=== PATIENT | male | born 1960 | race Caucasian/White ===

== ENCOUNTER 2017-05-02 18:58 | Inpatient (IN) | payer SELFPAY ==
[~2017-05-02] VITALS: Ht 177.8 cm; Wt 79.4 kg
[2017-05-02 19:25] LABS: BASOPHIL % 0.6 % (0.0-0.2); EOSINOPHIL # 0.2 10^3/uL (0.0-0.2); EOSINOPHIL % 3.7 % (0.0-5.0); HEMOGLOBIN 14.2 g/dL (13.9-16.3); LYMPHOCYTES # 1.1 10^3/uL (1.0-4.8); LYMPHOCYTES % 20.7 % (24.0-44.0); MEAN CELL HGB 30.5 pg (26-34); MEAN CORP VOLUME 89.9 fL (78-100); MEAN PLATELET VOLUME 8.8 fL (7.8-11.0); MONOCYTES # 0.4 10^3/uL (0.3-0.8); MONOCYTES % 8.1 % (5.0-12.0); NEUTROPHIL # 3.6 10^3/uL (1.8-7.7); NEUTROPHILS % 66.9 % (41.0-85.0); RED CELL DISTRIBUTION WIDTH 12.8 % (11.5-14.5); WHITE BLOOD CELL 5.4 10^3/uL (4.5-11.0)
--- NOTE | 2017-05-02 19:25 | PCM.EKG ---
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 Reading MD: Ben SALAS Measurements Intervals [place] Rate: 82 P: 56 RI: 150 QRS: 81 QRSD: 80 T: 84 QT: 372 QTc: 434 Interpretive Statements Poor data quality, interpretation may be adversely affected Normal sinus rhythm Normal ECG No previous ECG available for comparison Electronically Signed On 05-07-2017 18:56:24 FIELD SPEC by Ben SALAS Please click the below link to view image of tracing.
--- NOTE | 2017-05-02 19:30 | NUR ---
DENIES PATIENT DENIES BEING SUICIDAL/HOMICIDAL
--- NOTE | 2017-05-02 19:50 | NUR ---
URINE COLLECTED AND TAKEN TO LAB
[2017-05-02 19:52] LABS: BILIRUBIN,URINE NEGATIVE (NEGATIVE)
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
[2017-05-02 19:58] LABS: APPEARANCE,URINE CLEAR (CLEAR); UA COLOR YELLOW (YELLOW)
--- NOTE | 2017-05-02 20:02 | DIREP ---
PROCEDURE:CHEST 1 VIEW COMPARISON:[facility], CR, XRAY CHEST SINGLE VW, 01/07/2017, 05:04 PM. [facility], CR, XRAY CHEST SINGLE VW, 11/11/2016, 03:48 PM. INDICATIONS:MED CLEARANCE FINDINGS: LUNGS/PLEURA:No significant pulmonary parenchymal abnormalities. No effusions. VASCULATURE:Normal. Unremarkable pulmonary vasculature. CARDIAC:Normal. No cardiac silhouette abnormality or cardiomegaly. MEDIASTINUM:Normal. No visible mass or adenopathy. BONES:Old left rib fractures. OTHER:Negative. CONCLUSION:No acute cardiopulmonary abnormalities. Dictated by: Roman Quintero M.D. on 05/02/2017 at 08:00 PM
[2017-05-02 20:07] LABS: UR BENZODIAZEPINE QUAL NEGATIVE (NEGATIVE); UR COCAINE QUAL NEGATIVE (NEGATIVE)
--- NOTE | 2017-05-02 20:10 | NUR ---
TO CT PATIENT TO CT VIA WHEELCHAIR WITH THIS NURSE AND STEFANY LUNDY AND
--- NOTE | 2017-05-02 20:15 | NUR ---
BACK FROM CT PATIENT BACK FROM CT, PATIENT COOPERATING AT THIS TIME. PATIENT ATE HAMBURGER AND FRIES AND DRANK SEVERAL GLASSES OF WATER PRIOR TO GOING TO CT AND SEEMS TO BE MORE COOPERATIVE. NO NEEDS VOICED BY PATIENT, VITALS STABLE
[2017-05-02 20:19] LABS: ALANINE AMINOTRANSFERASE 26 U/L (12-78); ALKALINE PHOSPHATASE 70 U/L (50-136); ASPARTATE AMINO TRANSFERASE 17 U/L (0-35); CALCIUM 8.6 mg/dL (8.4-10.5); CARBON DIOXIDE 30.2 mmol/L (20.0-32); CHOLESTEROL 147 mg/dL (120-240); GLUCOSE 87 mg/dL (70-110); HDL CHOLESTEROL 61 mg/dL (32-96)
--- NOTE | 2017-05-02 20:31 | DIREP ---
PROCEDURE:CT HEAD OR BRAIN W/O CONTRAST COMPARISON:[facility], CT, CT HEAD BRAIN W/O CONTRAST, 01/08/2017, 11:29 PM. INDICATIONS:MED CLEARANCE, AMS TECHNIQUE:CT images were created without intravenous contrast. Motion artifacts are present on multiple images. FINDINGS: VENTRICLES:The ventricles are normal in size and configuration. CEREBRUM:Normal cerebral morphology with appropriate turner white matter differentiation. CEREBELLUM:Negative. BRAINSTEM:Negative. BASAL CISTERNS:Negative. HEMORRHAGE:No obvious acute hemorrhage. MASS LESION:No obvious mass. ACUTE INFARCT:No obvious acute infarct. SKULL:Normal. SINUSES:Normal. OTHER:None CONCLUSION:Motion degraded examination. No obvious acute abnormalities. Dictated by: Roman Quintero M.D. on 05/02/2017 at 08:29 PM
--- NOTE | 2017-05-02 20:37 | ER.PDOC ---
General Chief Complaint: Medical Clearance Stated Complaint: ALTERED MENTAL STATUS Time seen by MD: 19:38 Source: patient Exam Limitations: clinical condition History of Present Illness Initial Comments altered mental status to ed via ems found wandering Timing/Duration: other (unknown duration + psyche hx for hallucination TBI ) Character of AMS: disoriented Context: unknown duration Usually: orientedx3 Prior symptoms/Treatment: Similar symptoms previous, Treated by Doctor Allergies: Coded Allergies: codeine (Verified Allergy, Unknown, RASH, 11/11/16) Home Meds Unable to Obtain Active Prescriptions or Reported Meds Family History Significant Family History: no pertinent family hx Social History Smoking: cigarettes, greater than 1 pack/day Alcohol Use: rarely Drug Use: Meth Review of Systems All Other Systems: Reviewed and Negative Physical Exam General Appearance: other (disoriented + hallucinations speaking to self) HEENT: EOM's intact, airway intact, oral exam nml Neuro/Psych: disoriented to person, disoriented to place, disoriented to time, abnml speech, abnml cognition Cranial Nerves: nml as tested Cerebellar: nml as tested Respiratory: no resp distress, breath sounds nml CVS: reg rate & rhythm, heart sounds nml Abdomen: non-tender, no organomegaly, no distention Skin: color nml, no rash, warm/dry Extremities: non-tender, nml ROM, no pedal edema Results/Orders Results/Orders Laboratory Tests Test 05/02/17 00:00 05/02/17 19:21 Urine Collection Type VOID Urine Color YELLOW (YELLOW) Urine Appearance CLEAR (CLEAR) Urine Bilirubin NEGATIVE MG/DL (NEGATIVE) Urine Ketones NEGATIVE (NEGATIVE) Urine Specific [employer] 1.020 (1.005-1.035) Urine pH 6 (5.0-6.0) Urine Protein NEGATIVE (NEGATIVE) Urine Urobilinogen 1.0 (NEGATIVE) Urine Nitrate NEGATIVE (NEGATAIVE) Urine Leukocyte Esterase NEGATIVE (NEGATIVE) Urine Blood NEGATIVE (NEGATIVE) Urine Glucose NORMAL (NEGATIVE) Opiates Screen NEGATIVE (NEGATIVE) Barbiturate Screen NEGATIVE (NEGATIVE) Urine Tricyclic Antidepressants NEGATIVE (NEGATIVE) Phencyclidine (PCP) Screen NEGATIVE (NEGATIVE) Amphetamines Screen POSITIVE (NEGATIVE) Benzodiazepines Screen NEGATIVE (NEGATIVE) Cocaine Screen NEGATIVE (NEGATIVE) Ur Tetrahydrocannabinol (THC) Scrn NEGATIVE (NEGATIVE) White Blood Count 5.4 10^3/uL (4.5-11.0) Red Blood Count 4.65 10^6/uL (4.50-5.90) Hemoglobin 14.2 g/dL (13.9-16.3) Hematocrit 41.8 % (37.0-53.0) Mean Corpuscular Volume 89.9 fL (78-100) Mean Corpuscular Hemoglobin 30.5 pg (26-34) Mean Corpuscular Hemoglobin Concent 34.0 g/dL (33-37) Red Cell Distribution Width 12.8 % (11.5-14.5) Platelet Count 257 10^3/uL (150-400) Mean Platelet Volume 8.8 fL (7.8-11.0) Neutrophils (%) (Auto) 66.9 % (41.0-85.0) Lymphocytes (%) (Auto) 20.7 % (24.0-44.0) Monocytes (%) (Auto) 8.1 % (5.0-12.0) Neutrophils # (Auto) 3.6 10^3/uL (1.8-7.7) Lymphocytes # (Auto) 1.1 10^3/uL (1.0-4.8) Monocytes # (Auto) 0.4 10^3/uL (0.3-0.8) Absolute Immature Granulocyte (auto 0 10^3 u/L (0-2) Eosinophils % 3.7 % (0.0-5.0) Basophils % 0.6 % (0.0-0.2) Basophils # 0.0 10^3/uL (0.0-0.1) Eosinophil Count 0.2 10^3/uL (0.0-0.2) Prothrombin Time 11.4 SEC (9.8-11.9) Prothrombin Time INR (Non-Therap) 1.1 Activated Partial Thromboplast Time 29.0 SEC (24.67-30.72) Sodium Level 145 mmol/L (132-145) Potassium Level 3.7 mmol/L (3.6-5.2) Chloride Level 106.0 mmol/L (96-109) Carbon Dioxide Level 30.2 mmol/L (20.0-32) Anion Gap 12.5 Blood Urea Nitrogen 19 mg/dL (7-18) Creatinine 0.90 mg/dL (0.59-1.40) Estimated GFR () 104.9 (>/=60) BUN/Creatinine Ratio 21.0 Glucose Level 87 mg/dL (70-110) Hemoglobin A1c 5.4 % (4.2-6.2) Calcium Level 8.6 mg/dL (8.4-10.5) Total Bilirubin 0.3 mg/dL (0.2-1.0) Aspartate Amino Transf (AST/SGOT) 17 U/L (0-35) Alanine Aminotransferase (ALT/SGPT) 26 U/L (12-78) Alkaline Phosphatase 70 U/L (50-136) Total Creatine Kinase 164 U/L (39-308) Creatine Kinase MB 3.5 ng/mL (0.5-3.6) Troponin I < 0.02 ng/mL (0.00-0.05) C-Reactive Protein 0.13 mg/dL (0.00-5.00) Pro-B-Type Natriuretic Peptide 103 pg/mL (0-125) Total Protein 6.4 g/dL (6.4-8.2) Albumin 3.6 g/dL (3.4-5.0) Globulin 2.8 Triglycerides Level 75 mg/dL (20-200) Cholesterol Level 147 mg/dL (120-240) LDL Cholesterol, Calculated 71.0 VLDL Cholesterol 15.0 HDL Cholesterol 61 mg/dL (32-96) Cholesterol Ratio (LDL/HDL) 1.1 Cholesterol/HDL Ratio [id number] Vitamin B12 Level 374 pg/mL (193-986) Thyroid Stimulating Hormone (TSH) 1.496 mIU/mL (0.358-3.740) Valproic Acid (Depakene) Level < 3 ug/mL (50-100) [place] Level < 0.20 mmol/L (0.6-1.2) Percent Immature Gran (Cell Imm) 0.00 % (0.00-0.50) Administered Medications Medications (Trade) Dose Ordered Sig/Salvador Route PRN Reason Start Time Stop Time Status Last Admin Dose Admin Haloperidol Lactate (Haldol) 10 mg STAT STAT IM 05/02/17 21:15 05/02/17 21:16 DC 05/02/17 21:20 Progress Progress + medically cleared + amphetamine in UDS comit papers kimmie accepts to GP 2127 EKG/XRAY/CT/US EKG: NSR EKG Comments: no stemi XRAY: chest XRAY Comments: neg CT Comments: head neg Departure Time of Disposition: 21:59 Disposition: 09 ADMITTED INPATIENT Impression: Primary Impression: Methamphetamine abuse Additional Impression: Auditory hallucination Condition: Stable Referrals: [facility] (PCP) PRIMARY CARE PROVIDER Scripts Unable to Obtain Active Prescriptions or Reported Meds Problem Qualifiers SPENCER NÚÑEZ MD May 02, 2017 20:37
--- NOTE | 2017-05-02 21:03 | NUR ---
OZ ROMANO CALLED AND STATED SHE HAS LEFT A MESSAGE WITH THE DOCTOR BUT HASN'T HEARD BACK YET. SHE WILL CALL SOON SHE KNOWS
[2017-05-02] MEDS ORDERED: HALDOL ONE (21:15)
[2017-05-02] MEDS ORDERED: HALDOL IM STA (21:15)
--- NOTE | 2017-05-02 22:23 | NUR ---
JUDGE DUNBAR SIGNED COMMITTAL PAPERS
[2017-05-02] MEDS ORDERED: RISPERDAL PO STA (22:40)
[2017-05-02 22:50] VITALS: BP 168/87
--- NOTE | 2017-05-02 23:20 | NUR ---
arrival to unit PT. ARRIVED ON UNIT AT 2240 VIA W/C,ACCOMPANIED BY [employer] ATTENDANT AND ER NURSE. PT.'S CLOTHES AND BODY WAS VERY DIRTY . PT. WAS ORIENTED TO NAME NOT MONTH OR YEAR. PT. POSITIVE FOR METH. PT. WAS OBSERVED BY BYSTANDER AT [employer] TONIGHT WANDERING AROUND ,RAMBLING AND EXHIBITING HALLUCINATIONS AND DELUSIONAL. THE MAN CALLED POLICE AND DROVE THE PT. TO ER DEPT. ON ASSESSMENT BY THIS NURSE IN THE ER ,PT. STATED THERE WAS ROCKS FALLING FROM THE [place] ,EXHIBITED LOOSE ASSOCIATION AND FLIGHT OF IDE[place]. PT. SAID HE LIVES AT THREE DIFFERENT LOCATIONS. PT. WAS RESTLESS AND ANXIOUS AND RECEIVED HALDOL IN ER. WHEN PT. ARRIVED ON UNIT HE STATED HE WAS SLEEPY AND WAS ASSISTED WITH CHANGING CLOTHES AND TO BED. ASSESSMENT COMPLETED. NO SKIN ISSUES NOTED. Addendum: 05/03/17 at 0242 by Malika Erickson RN RN PT. STATED HE DOES NOT TAKE ANY MEDICATION.
--- NOTE | 2017-05-02 23:30 | NUR ---
DRKhurram NOTIFICATION DR. GARCIA WAS NOTIFIED AT 2200 AND VERBAL ORDER RECEIVED TO ADMIT PT. TO [facility] IF MEDICALLY CLEARED AND MEDICATION ORDERS RECEIVED. AT [address] DR. GARCIA PHONED UNIT TO CHECK ON PT. STATUS.
--- NOTE | 2017-05-02 23:40 | NUR ---
NOTIFICATION DR. LEE NOTIFICATION OF PT.'S ARRIVAL TO UNIT. NO ORDERS RECEIVED AT THIS TIME.
[2017-05-03] MEDS ORDERED: RISPERDAL PO PRN (02:00)
[2017-05-03] MEDS ORDERED: ATIVAN IM PRN (02:00)
--- NOTE | 2017-05-03 02:42 | NUR ---
STATUS PT. RESTING IN BED WITH EYES CLOSED. RESP. EVEN AND NON LABORED. HE REFUSED TO PUT ON YELLOW SOCK BUT THEY ARE AVAILABLE IN HIS ROOM. Q 15 MIN. MONITORING AND RECORDING THIS SHIFT. PT. HAS TAKEN MEDICATION ORDERED.
--- NOTE | 2017-05-03 04:53 | NUR ---
pirp p- altered thought process,substance abuse and self care deficit I- MONITOR Q 15 MIN. , GIVE CLEAR AND SIMPLE INSTRUCTIONS TO PT, PROVIDE SAFE AND SUPPORTIVE ENVIRONMENT,PROVIDE MEDICATION ORDERED, PROVIDE REALITY ORIENTATION NEEDED, OBSERVE FOR SIGNS AND SYMPTOMS OF WITHDRAWAL ,MONITOR FOOD AND FLUIDS AND ESTABLISH A ROUTINE FOR SELF GROOMING. R- PT. TOOK MEDICATION ORDERED AND DRANK 100 CC OF WATER. PUT HOSPITAL GOWN SO CLOTHES COULD BE WASHED, WAS ORIENTED TO NAME NOT YEAR OR MONTH. STATED ROCKS WERE FALLING FROM THE [place]. PT. RESTED IN BED WITH EYES CLOSED FOR 6.50 HOURS OF THIS TIME. P- WILL CONTINUE WITH CURRENT TX. PLAN.
[2017-05-03 07:45] VITALS: BP 132/77
[2017-05-03] MEDS: RISPERDAL PO SCH ×3 (08:28→20:02)
--- NOTE | 2017-05-03 12:50 | NUR ---
VSEE Pt was seen by Dr. Amato via telemed. Received orders to start daily nicotine patch, see EMAR.
--- NOTE | 2017-05-03 14:21 | HPH ---
ADMIT DATE: 05/02/2017 PSYCHIATRIC ADMISSION DIAGNOSTIC EVALUATION NOTE Time of evaluation: 12:00 to 01:00 o'clock CHIEF COMPLAINT: Psychotic symptoms. HISTORY OF PRESENT ILLNESS: This is an elderly male, admitted with active psychotic symptoms, wandering in the streets, homeless, found by the police and brought in involuntarily to the [facility], with active auditory and visual hallucinations, delusional thought and paranoia. He reports his mood as being stable, not depressed. No vegetative symptoms. No anhedonia. No suicidal or homicidal thoughts. It is clear that this individual has been using methamphetamine, he reports, since he was 28; most recently, in a methamphetamine pipe. And likely the psychotic symptoms are directly related to methamphetamine abuse. No other psychotic symptoms, and as outlined, no suicidal or homicidal ideation, intent or plan. 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 PAST MEDICAL HISTORY: None. ALLERGIES: CODEINE. CURRENT MEDICATIONS: Risperdal 2 mg t.i.d. FAMILY PSYCHIATRIC HISTORY: None reported. SOCIAL HISTORY: The patient lives in [place], [place]. 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 Positive alcohol use, positive tobacco, and methamphetamine use since 28 years of age. OBJECTIVE: VITAL SIGNS: Temperature 98.2 degrees Fahrenheit, pulse 90, respirations 16, oxygen saturation 97%, and blood pressure 132/77 mmHg. REVIEW OF SYSTEMS: HEENT: Normal. RESPIRATORY: No shortness of breath, coughing, or wheezing. CARDIAC: No chest pain or palpitations. GASTROINTESTINAL: No nausea, vomiting, diarrhea, or constipation. GENITOURINARY: No difficulty with urination. EXTREMITIES: No swelling or edema. MUSCULOSKELETAL: No muscle pain. NEUROLOGIC: Normal. ENDOCRINE: Normal. MENTAL STATUS EXAMINATION: An alert male with decreased psychomotor activity. Concentration and memory are intact. Speech and language are normal. Orientation is full. Intelligence is average. Mood is assessed as stable. Affect is appropriate. Insight and judgment are fair. Thought: Decreasing psychotic symptoms with decreasing auditory and visual hallucinations. No suicidal or homicidal ideation, intent, or plan. DIAGNOSES: AXIS I: 1. Psychotic disorder, NOS. 2. Methamphetamine use disorder. AXIS II: Deferred. AXIS III: Refer to past medical history. TREATMENT PLAN: 1. This patient was admitted involuntarily to the [facility], representing a risk and danger to himself. 2. He has been placed on medications, specifically Risperdal 2 mg t.i.d. 3. He is to participate in groups, therapies, and activities. 4. The patient will be discharged to an outpatient setting when he no longer represents any risk or danger to himself. Aleksander Amato MD DR: LUCI/norma JOB# [id number]
[2017-05-03] MEDS ORDERED: NICOTINE 21MG PATCH TD STA (14:31)
--- NOTE | 2017-05-03 16:36 | NUR ---
MMSE: NO IMPAIRMENT Addendum: 05/03/17 at 1636 by Janina Ascencio, JOSE, BOOKSEAMER BLINDSTITCH SW Amended: Links added.
--- NOTE | 2017-05-03 16:43 | NUR ---
GMAS: NO DEPRESSION Addendum: 05/03/17 at 1643 by Janina Ascencio, JOSE, RECRUITING INTERN SW Amended: Links added.
--- NOTE | 2017-05-03 17:03 | NUR ---
SYMPTOMATOLOGY EVAL: PT PRESENTED TO THE ER WITH [place] [employer] DUE TO ROAMING AROUND ON THE [place] [employer] HALLUCINATING THAT ROCKS WERE FALLING FROM THE [place] AND TALKING TO PEOPLE THAT WERE NOT THERE AND TAKING HIS CLOTHES OFF AT THE ADMISSION DESK. RECOMMENDED INPATIENT TREATMENT ON THE [facility] ON AN INVOLUNTARY STATUS AT THIS TIME. Addendum: 05/03/17 at 1707 by Janina Ascencio LMSW, CR [facility] Amended: Links added.
--- NOTE | 2017-05-03 17:33 | NUR ---
PIRP P: Hallucinating, withdrawn, depression, anxiety, loose associations I: Assess type of hallucinations, assess reasons for depression and anxiety, provide safe and supportive environment, Q15 min monitoring, provide reality orientation, teach relaxation techniques, assist with differentiating between internal and external reality, monitor changes in mood, redirect with verbalization, provide task-oriented activities, encourage group participation R: Pt is alert and oriented to self, town, and month. Has pleasant, cooperative affect when approached. Withdraws to room, will walk halls occasionally. Has voiced wanting to leave facility, reports that he will, "be back before noon" if staff will let him out. Rates depression @ 7 and anxiety @ 5 on 0-10 scale. States, "I've been depressed for a while. These damn [place] people won't leave me alone." "I'm anxious to get out of here." Pt reports hearing people talking, and assumes it is a radio that is constantly playing. When pt told that there was no one talking and no music playing, pt stated, "Well if you don't hear it, then I don't either." P: Pt was started on antipsychotic medication when admitted, has been med compliant. Reports that he will do what he needs to do to be able to leave.
[2017-05-03 20:00] VITALS: BP 156/75
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
[2017-05-03] MEDS: ATIVAN PO PRN (23:00)
--- NOTE | 2017-05-03 23:53 | NUR ---
medications Patient aggitated, pacing, exit seeking, tore ceiling tiles down, continues to move chair to try to tear ceiling tiles down, RN notified this nurse to give ativan 0.5mg po, given at 1100 per prn orders
--- NOTE | 2017-05-04 02:28 | NUR ---
PIRP P - Altered thought process, substance abuse and self-care deficit. I - Monitor q 15mins for safety, provide safe and supportive environment, medicate daily as per MD order. R - Patient has been restless for first part of this shift pacing up and down hallway, unable to stay still during group or really interact with other patients. Prn ativan given due to patient trying to get on chair and breaking antennas on ceiling, unable to redirect patient. P - Continue [place] plan of care.
[2017-05-04] MEDS ORDERED: NICOTINE 21MG PATCH TD ONE (06:27)
[2017-05-04 07:56] VITALS: BP 147/83
--- NOTE | 2017-05-04 08:20 | NUR ---
Dr. Lm Amato notified of pt's behaviors. Restless, pacing, wandering in pts' rooms, delusions, talking to people not there. Received orders to increase PRN risperdal.
[2017-05-04] MEDS: NICOTINE 21MG PATCH TD SCH (09:21)
[2017-05-04] MEDS: RISPERDAL PO SCH ×3 (09:21→20:01)
[2017-05-04] MEDS: ATIVAN PO PRN (09:21)
[2017-05-04] MEDS ORDERED: RISPERDAL PO PRN (12:00)
--- NOTE | 2017-05-04 17:35 | NUR ---
PIRP P: Hallucinating, exit-seeking, restless I: Assess type of hallucinations, lock unit jaimes pads, redirect with verbalization, provide safe and supportive environment, Q15 min monitoring, provide reality orientation, assist with differentiating between internal and external reality, monitor changes in mood, provide task-oriented activities, give PRN medication as ordered by physician R: Pt denies depression and anxiety, but has been restless and exit-seeking throughout shift. Pt able to communicate with it security consultant without difficulty, but when staff redirects pt, pt walks away, mumbles, or answers inappropriately. Pt states, "I feel fine. I just don't know where I am." Pt is alert and oriented to self, place, town, month, year, and day of week. Exhibits loose associations @ times, is delusional, and is frequently seen talking to self. P: Pt reports to staff that he just wants to "get out of here." Has not become combative or agitated with staff.
[2017-05-04 18:58] VITALS: BP 166/81
--- NOTE | 2017-05-05 05:01 | NUR ---
PIRP P - Altered thought process, substance abuse and self-care deficit. I - Monitor q 15mins for safety, provide safe and supportive environment, medicate daily as per MD order. R - Patient has been restless for first part of this shift pacing up and down hallway, patient has been redirectable this shift, also can answer simple questions this shift P - Continue [place] plan of care.
[2017-05-05 07:18] VITALS: BP 130/67
[2017-05-05] MEDS: NICOTINE 21MG PATCH TD SCH (08:15)
[2017-05-05] MEDS: RISPERDAL PO SCH ×3 (08:15→20:06)
--- NOTE | 2017-05-05 10:07 | NUR ---
BEHAVIOR NOTE: Patient has been calm and cooperative and pleasant. He denies hallucinations auditory and visual and denies suicidal ideation. He admits to Marijuana use but denies METH use. He is oriented x3. Rambles when he talks and mumbles to self.
[2017-05-05] MEDS: ATIVAN PO PRN (13:44)
--- NOTE | 2017-05-05 13:44 | NUR ---
BEHAVIOR NOTE: P: ALTERED THOUGHT PROCESS. SUBSTANCE ABUSE. SELF-CARE DEFICIT. Patient talking to self wandering hallway and checking for exits and pressing on doors. I: Provide clear and simple instructions. Provide reality orientation as needed. Provide medications as ordered and need/purpose. Assist patient in differentiating between internal/external reality daily. Provide task oriented activities which promote increased concentration and promote benefits of self care and hygiene. R:Patient is oriented x3. He has been wandering off and on all shift and has progressed to checking for exits and pushing on doors. He has been easily redirected but appears anxious and restless. Ativan 0.5 mg po PRN given. He has a history of brain injury but recent CT is negative. He admits to using Marijuana but denies METH use even thought positive.He denies hearing voices but will talk out loud to self. He has taken all medications as ordered by physician and is eating and drinking well. P: Monitor patient for effectiveness of all medication and continue with current plan of care.
[2017-05-05 20:00] VITALS: BP 154/73
--- NOTE | 2017-05-06 05:05 | NUR ---
PIRP P- ALTERED THOUGHT PROCESS I-PROVIDE SAFE AND SUPPORTIVE ENVIRONMENT,PROVIDE MEDICATION ORDERED,PROVIDE 1:1 INTERVENTION ALLOWING PT. TO EXPRESS THOUGHTS AND FEELINGS AND MONITOR Q 15 MIN. R- PT. ORIENTED TIMES THREE AND RATED DEPRESSION AND ANXIETY 0. ATTENDED GROUP AND PARTICIPATED. INITIATED INTERACTION AT TIMES. TOOK MEDICATION ORDERED. PT. DENIES HALLUCINATIONS TONIGHT AND WAS NOT OBSERVED TALKING TO SELF TONIGHT. PT. STATED HE WAS DOWN ON HIS LUCK AND HAS NO MONEY. PT. HAS RESTED IN BED WITH EYES CLOSED FOR 7 HOURS OF THIS TIME . AWAKE AND LYING IN BED AT THIS TIME. P- WILL CONTINUE WITH CURRENT TX. PLAN.
[2017-05-06 07:30] VITALS: BP 135/65
[2017-05-06] MEDS: NICOTINE 21MG PATCH TD SCH (08:36)
[2017-05-06] MEDS: RISPERDAL PO SCH (08:36)
--- NOTE | 2017-05-06 09:21 | NUR ---
DISCHARGE PLANNING: SS VISITED WITH PT REGARDING HIS ILLEGAL DRUG USE. PT AT THIS TIME DOES NOT THINK HE HAS A PROBLEM OR NEEDS REHAB. PT STATED HE WOULD LIKE TO WAIT UNTIL AFTER THE HOLIDAYS TO REEVALUATE AND AT THAT TIME HE WOULD THINK ABOUT REHAB. SS EDUCATED AND PROVIDED PT WITH LOCAL [employer] TO ASSIST WITH BILL ASSISTANCE AND MEDICATION. SS ALSO GAVE PT THE NUMBER TO CALL IF AND WHEN HE DECIDES HIS DRUG USE IS A PROBLEM. PT STATED HE HAS THREE HOMES AND PLANS ON STAYING AT THE ONE ON [address] HERE IN [place] AT THIS TIME. DUE TO CONCERNS REGARDING PT NOT HAVING ACCESS TO FOOD, WATER, AND ELECTRICITY AN APS REPORT WILL BE MADE TO PROVIDE ADDITIONAL RESOURCES TO PATIENT. NO FURTHER SS NEEDS NOTED AT THIS TIME. GOAL FOR PT TO RETURN HOME TO ROUTINE SELF CARE. CONTACT INFORMATION PROVIDED.
[2017-05-06] MEDS ORDERED: RISP1TAB45 PO (09:32)
--- NOTE | 2017-05-06 10:21 | DSH ---
DATE OF DISCHARGE: 05/06/2017 TIME OF EVALUATION: 0800 to 0820 HOSPITAL COURSE: The patient is an elderly male admitted due to acute onset of psychotic symptoms, which was due to methamphetamine, with some auditory and visual hallucinations and some delusional thought. No significant depressive symptoms or mood symptoms whatsoever. No cara. The patient denied methamphetamine use and then reported that he has been using for the past 30 years. Smoking it always, not injecting it. The patient was placed on Risperdal 2 mg 3 times a day. On this medication and with observation therapy, the patient showed a complete resolution of all psychotic symptoms. No depression, no cara, no suicidal or homicidal ideation, intent or plan. He was requesting a discharge. He was offered rehabilitation for his drug use disorder, which he refused saying that he no longer had a problem and he was not going to enroll in a rehabilitation program. The patient is homeless, although he states that he has a home in [place], and therefore, it was elected to discharge this patient to his home in [place] with a strong advice that he follow up with a rehabilitation chemical dependency program, and that we would arrange this for him; he became angry and said that he did not want any rehabilitation. DISPOSITION AND DIAGNOSES: AXIS I: 1. Psychotic disorder, not otherwise specified. 2. Methamphetamine abuse disorder. AXIS II: Deferred. AXIS III: Refer to past medical history. DISCHARGING TREATMENT PLAN: 1. The patient was admitted with acute psychosis due to methamphetamine and observed closely. 2. He was placed on medication, Risperdal 2 mg 3 times a day. 3. He did participate in inpatient groups, therapies, and activities. 4. The patient is requesting a discharge, refusing chemical-dependency rehabilitation. He no longer meets criteria for commitment process, and therefore, will be discharged per his request. Followup will be per the patient as he is refusing all treatment and care at this point. MENTAL STATUS EXAMINATION: An alert male. No increased or decreased psychomotor activity. Concentration and memory are intact. Speech and language are normal. Orientation is full. Intelligence is average. Mood is assessed as euthymic. Affect is appropriate. Insight and judgment are good. Thought is logical and goal directed with no suicidal or homicidal ideation, intent or plan. Aleksander D. Amato, MD DR: LUCI/norma JOB# [id number]
[2017-05-06 11:11] VITALS: BP 135/65
--- NOTE | 2017-05-06 11:12 | NUR ---
FLU VACCINE PT REFUSED THE FLU VACCINE. EDUCATED ON THE IMPORTANCE OF THE FLU VACCINE. PT STILL REFUSED THE VACCINE.
--- NOTE | 2017-05-06 11:15 | NUR ---
DISCHARGE: Patient discharged from [facility] to home self care. Patient refused follow up with Dr. Amato, refused prescription of Risperdal, and refused referral to drug rehab and transportation home. Patient stated "I will walk.
--- NOTE | 2017-05-06 11:15 | NUR ---
TRANSPORTATION: SS LET PT KNOW SHE COULD ASSIST IN GETTING PT TRANSPORTATION UPON DISCHARGE. PT HAS REFUSED, AND STATED "I CAN WALK, I DON'T LIVE FAR FROM HERE". NO FURTHER SS NEEDS NOTED AT THIS TIME.
== END 2017-05-06 11:30 | disposition home or self-care (01) | DRG 885 ==
LOC: ER 18:58 → GP 22:00 → EEVIPCON 22:00
PROVIDERS: ADMIT Psychiatry & Neurology Psychiatry; ATTEND Psychiatry & Neurology Psychiatry
DX: F23 Brief psychotic disorder (principal); F15.10 Other stimulant abuse, uncomplicated; Z53.29 Procedure and treatment not carried out because of patient's decision for other reasons; F17.210 Nicotine dependence, cigarettes, uncomplicated; Z59.0 Homelessness; Z79.899 Other long term (current) drug therapy; Z88.6 Allergy status to analgesic agent; Z91.83 Wandering in diseases classified elsewhere
CPT/HCPCS: 36415; 70450; 71010; 80053; 80061; 80164; 80178; 80307; 80324; 81002; 82550; 82553; 83036; 83880; 84443; 84484; 85025; 85610; 86140; 93005; 96372; 97150; 97165; 99285; G8987; G8988; J1630